=== PATIENT | male | born 1970 | race Caucasian/White ===

== ENCOUNTER 2018-12-23 19:25 | Emergency (ER) | payer MEDICAID, OTHER ==
[2018-12-23 19:54] VITALS: BMI 30.4
[2018-12-23 19:55] VITALS: TEMP 98.6
[2018-12-23] MEDS ORDERED: Sodium Chloride 0.9% 500 ML IV STA (20:12)
--- NOTE | 2018-12-23 20:16 | ED PDOC ---
Arrival/HPI - General Chief Complaint: Back Pain Time Seen by Provider: 12/23/18 19:26 Historian: Patient - History of Present Illness Narrative History of Present Illness (Text): 12/23/18 20:13 Rosy Overton is a 48 year old male, whose past medical history includes diabetes and herniated disc, who presents to the Emergency department complaining of intermittent right flank pain for the past 2 days. Patient states right flank pa in is sharp and does not radiate. Patient reports he took a Motrin yesterday but denies any significant relief. Patient notes he has a history of chronic back pain, but states current pain is more severe in quality. Patient denies any history of kidney stones, nausea, vomiting, hematuria, urinary frequency, or any other complaints. Time/Duration: < week (2 days) Symptom Onset: Gradual Symptom Course: Unchanged Quality: Other (Sharp) Activities at Onset: Light Context: Home Past Medical History - Provider Review Nursing Documentation Reviewed: Yes - Infectious Disease Hx of Infectious Diseases: None - Cardiac Hx Cardiac Disorders: No - Pulmonary Hx Respiratory Disorders: No - Neurological Hx Neurological Disorder: Yes Other/Comment: Pinched nerve on back - HEENT Hx HEENT Disorder: No - Renal Hx Renal Disorder: No - Endocrine/Metabolic Hx Endocrine Disorders: Yes Hx Diabetes Mellitus Type 2: Yes - Hematological/Oncological Hx Blood Disorders: No - Integumentary Hx Dermatological Disorder: No - Musculoskeletal/Rheumatological Hx Musculoskeletal Disorders: No - Gastrointestinal Hx Gastrointestinal Disorders: No - Genitourinary/Gynecological Hx Genitourinary Disorders: No - Psychiatric Hx Psychophysiologic Disorder: No Hx Substance Use: No - Anesthesia Hx Anesthesia: No Family/Social History - Physician Review Nursing Documentation Reviewed: Yes Family/Social History: Unknown Family HX Smoking Status: Never Smoked Hx Alcohol Use: Yes Hx Substance Use: No Allergies/Home Meds Allergies/Adverse Reactions: Allergies No Known Allergies Allergy (Verified 12/23/18 19:54) Review of Systems - Physician Review All systems were reviewed & negative as marked: Yes - Review of Systems Constitutional: absent: Fevers Gastrointestinal: absent: Nausea, Vomiting Genitourinary Male: absent: Dysuria, Frequency, Hematuria Musculoskeletal: Back Pain (+right flank pain) Physical Exam - Physical Exam Narrative Physical Exam (Text): Gen: VS reviewed, alert, well developed, well nourished, nontoxic, mild distress. ENT: normal pharynx. Eye: EOMI, PERRL. Neck: no JVD, supple, no adenopathy. CV: regular rate, regular rhythm, no rubs, no murmur, no gallops, S1, S2, pulses equal and strong. Pulm: no distress, clear to auscultation, no wheeze, no rhonchi, breath sounds equal, no rales. Abd: soft, nontender, no guarding, no rebound, no rigidity, normal bowel sounds. Back: +Right CVA tenderness, no midline tenderness Ext: no edema. Skin: good color, no rash, no cyanosis. Psych: responds appropriately to questions, normal affect. Neuro: oriented x 3, CN2-12 intact grossly, motor intact, sensation intact. Vital Signs Reviewed: Yes Vital Signs Temp Pulse Resp BP Pulse Ox 12/23/18 19:55 98.6 F 108 H 18 136/87 96 Temperature: Afebrile Blood Pressure: Normal Pulse: Regular Respiratory Rate: Normal Appearance: Positive for: Well-Appearing, Non-Toxic, Comfortable Pain Distress: None Mental Status: Positive for: Alert and Oriented X 3 Medical Decision Making ED Course and Treatment: 12/23/18 20:14 Impression: 48 year old male complaining of sharp right flank pain for the past 2 days. Plan: -- CT Abdomen and Pelvis -- CBC, BMP -- Urinalysis -- IV fluids -- Toradol -- Tylenol -- Reassess and disposition Progress Notes: 12/23/18 21:[address] Farooq, pending Urinalysis, CT, reassessment, and disposition. - Lab Interpretations I have reviewed the lab results: Yes - RAD Interpretation Radiology Orders: 12/23/18 20:12 ABDOMEN & PELVIS [ABD & PELVIS W/O PO OR IV CONT] [CT] Stat - Medication Orders Current Medication Orders: Acetaminophen (Tylenol 325mg Tab) 975 mg PO STAT STA Stop: 12/23/18 20:13 Sodium Chloride (Sodium Chloride 0.9%) 500 mls @ 999 mls/hr IV .Q31M STA Stop: 12/23/18 20:42 Ketorolac Tromethamine (Toradol) 30 mg IVP STAT STA Stop: 12/23/18 20:13 - Scribe Statement The provider has reviewed the documentation as recorded by the Scribe Clara Newellzon Provider Dunia Attestation: All medical record entries made by the Dunia were at my direction and personally dictated by me. I have reviewed the chart and agree that the record accurately reflects my personal performance of the history, physical exam, medical decision making, and the department course for this patient. I have also personally directed, reviewed, and agree with the discharge instructions and disposition. Disposition/Present on Arrival - Present on Arrival Any Indicators Present on Arrival: No History of DVT/PE: No History of Uncontrolled Diabetes: No Urinary Catheter: No History of Decub. Ulcer: No History Surgical Site Infection Following: None - Disposition Have Diagnosis and Disposition been Completed?: Yes Diagnosis: Back pain Disposition: HOME/ ROUTINE Disposition Time: 19:26 Discharge Instructions (ExitCare): Low Back Pain (DC), Upper Back Pain (DC) Additional Instructions: ROSY OVERTON, thank you for letting us take care of you today. Your provider was Papito Farooq MD and you were treated for LOWER BACK PAIN. The emergency medical care you received today was directed at your acute symptoms. If you were prescribed any medication, please fill it and take as directed. It may take several days for your symptoms to resolve. Return to the Emergency Department if your symptoms worsen, do not improve, or if you have any other problems. Please contact your doctor or call one of the physicians/clinics you have been referred to that are listed on the Patient Visit Information form that is included in your discharge packet. Bring any paperwork you were given at discharge with you along with any medications you are taking to your follow up visit. Our treatment cannot replace ongoing medical care by a primary care provider outside of the emergency department. Thank you for allowing the [facility] team to be part of your care today. If you had an X-Ray or CT scan: A Radiologist will review the ED reading if any change in treatment is needed we will contact you. Prescriptions: Cyclobenzaprine [Cyclobenzaprine HCl] 10 mg PO TID #21 tab Forms: [employer] (Algerian), WORK NOTE
[2018-12-23 20:40] LABS: BASO # 0.02 K/mm3 (0.0-2.0); BASO % 0.2 % (0.0-3.0); EOS # 0.1 (0.0-0.7); EOS % 1.1 % (1.5-5.0); HEMOGLOBIN 15.1 g/dL (14.0-18.0); LYMPH % 30.5 % (22.0-35.0); MEAN CELL VOLUME 85.9 fl (80.0-105.0); MEAN CORPUSCULAR HEMOGLOBIN 30.8 pg (25.0-35.0); MEAN CORPUSCULAR HGB CONC 35.8 g/dl (31.0-37.0); MEAN PLATELET VOLUME 10.2 fl (7.0-11.0); MONO # 0.8 (0.1-0.6); MONO % 7.7 % (1.0-6.0); RBC 4.91 10^6/uL (3.5-6.1); RED CELL DISTRIBUTION WIDTH 12.7 % (11.5-14.5); WHITE BLOOD COUNT 9.8 10^3/uL (4.5-11.0)
[2018-12-23 20:46] LABS: BLOOD UREA NITROGEN 20 mg/dL (7-21); CALCIUM 9.8 mg/dL (8.4-10.5); GFR NON-AFRICAN AMERICAN > 60
[2018-12-23 22:40] LABS: URINE BILIRUBIN NEGATIVE (NEGATIVE); URINE BLOOD NEGATIVE (NEGATIVE); URINE GLUCOSE (UA) 500 mg/dL (NEGATIVE); URINE LEUKOCYTE ESTERASE NEGATIVE Leu/uL (NEGATIVE); URINE PROTEIN TRACE mg/dL (<30 mg/dL); URINE UROBILINOGEN 0.2 E.U./dL (<1 E.U./dL)
[2018-12-23 22:42] LABS: URINE APPEARANCE CLEAR (CLEAR)
--- NOTE | 2018-12-23 23:00 | ED PDOC ---
Physical Exam Vital Signs Temp Pulse Resp BP Pulse Ox 12/23/18 19:55 98.6 F 108 H 18 136/87 96 Medical Decision Making ED Course and Treatment: 12/23/18 21:40 Case endorsed to me by Dr. Burris, pending Urinalysis, CT Abdomen and Pelvis, reassessment, and disposition. 12/23/18 22:40 CT Abdomen and Pelvis: LUNG BASES: The lung bases appear clear. No pleural effusions are seen. LIVER: there is hepatomegaly. The liver measured an estimated 20.4 cm in the midclavicular line. GALLBLADDER AND BILE DUCTS: The gallbladder is partially contracted. No radioopaque gallstones are seen. No biliary ductal dilatation is evident. PANCREAS: Unremarkable. SPLEEN: Unremarkable. ADRENAL GLANDS: Unremarkable. KIDNEYS, URETERS, AND BLADDER: The kidneys appear within normal limits. There is no hydronephrosis or hydroureter. No urinary calculi are seen. The urinary bladder is normal in size and configuration. STOMACH AND BOWEL: Circumferential mucosal wall thickening is seen within the lower esophagus at the esophagogastric junction thought compatible with reflux esophagitis. Retained food debris is seen within the stomach. No evidence of bowel obstruction. No evidence suggesting enteritis or colitis. APPENDIX: No evidence of acute appendicitis on CT examination. PERITONEUM: No free fluid. No free air. LYMPH NODES: No lymphadenopathy is evident. VASCULATURE: No evidence of abdominal aortic aneurysm. BONES: No aggressive appearing osseous lesion. No acute osseous pathology evident. IMPRESSION: 1. Evidence of reflux esophagitis. 2. Retained food debris is noted within the stomach. This may indicate recent ingestion of a meal. 3. Hepatomegaly. Measurement is given above. Electronically signed on Dec 23, 2018 10:37:46 PM EST by: Maurizio Asencio M.D., MARIA LUISA Certified By [employer] Fellowship Trained MRI and CT Specialist - Lab Interpretations Lab Results: Urine Color yellow (YELLOW) 12/23/18 22:10 Urine Appearance Clear (CLEAR) 12/23/18 22:10 Urine pH 6.0 (4.7-8.0) 12/23/18 22:10 Ur Specific [place] >= 1.030 (1.005-1.035) 12/23/18 22:10 Urine Protein Trace mg/dL (<30 mg/dL) H 12/23/18 22:10 Urine Glucose (UA) 500 mg/dL (NEGATIVE) H 12/23/18 22:10 Urine Ketones 15 mg/dL (NEGATIVE) H 12/23/18 22:10 Urine Blood Negative (NEGATIVE) 12/23/18 22:10 Urine Nitrate Negative (NEGATIVE) 12/23/18 22:10 Urine Bilirubin Negative (NEGATIVE) 12/23/18 22:10 Urine Urobilinogen 0.2 E.U./dL (<1 E.U./dL) 12/23/18 22:10 Ur Leukocyte Esterase Negative Marvel/uL (NEGATIVE) 12/23/18 22:10 Urine RBC TEST NOT PERFORMED 12/23/18 22:10 Urine WBC 2 - 5 /hpf (0-6) 12/23/18 22:10 Ur Epithelial Cells 6 - 8 /hpf (0-5) H 12/23/18 22:10 - RAD Interpretation Radiology Orders: 12/23/18 20:12 ABDOMEN & PELVIS [ABD & PELVIS W/O PO OR IV CONT] [CT] Stat - Medication Orders Current Medication Orders: Discontinued Medications Acetaminophen (Tylenol 325mg Tab) 975 mg PO STAT STA Stop: 12/23/18 20:13 Last Admin: 12/23/18 20:26 Dose: 975 mg Sodium Chloride (Sodium Chloride 0.9%) 500 mls @ 999 mls/hr IV .Q31M STA Stop: 12/23/18 20:42 Last Admin: 12/23/18 20:26 Dose: 999 mls/hr eMAR Start Stop Document 12/23/18 20:26 CNR (Rec: 12/23/18 20:26 CNR [id number]) Intravenous Solution Start Date 12/23/18 Start Time 20:26 End Date 12/23/18 End time 21:26 Total Infusion Time 60 Ketorolac Tromethamine (Toradol) 30 mg IVP STAT STA Stop: 12/23/18 20:13 Last Admin: 12/23/18 20:27 Dose: 30 mg MAR Pain Assessment Document 12/23/18 20:27 CNR (Rec: 12/23/18 20:27 CNR [id number]) Pain Reassessment Is this a pain reassessment? No IVP Administration Document 12/23/18 20:27 CNR (Rec: 12/23/18 20:27 CNR [id number]) Charges for Administration # of IVP Administrations 1 - Scribe Statement The provider has reviewed the documentation as recorded by the Doyleibe Clara Pool Provider Scribe Attestation: All medical record entries made by the Scribe were at my direction and personally dictated by me. I have reviewed the chart and agree that the record accurately reflects my personal performance of the history, physical exam, medical decision making, and the department course for this patient. I have also personally directed, reviewed, and agree with the discharge instructions and disposition. Disposition/Present on Arrival - Present on Arrival Any Indicators Present on Arrival: No History of DVT/PE: No History of Uncontrolled Diabetes: No Urinary Catheter: No History of Decub. Ulcer: No History Surgical Site Infection Following: None - Disposition Additional Instructions: ROSY SERRA, thank you for letting us take care of you today. Your provider was Papito Farooq MD and you were treated for LOWER BACK PAIN. The emergency medical care you received today was directed at your acute symptoms. If you were prescribed any medication, please fill it and take as directed. It may take several days for your symptoms to resolve. Return to the Emergency Department if your symptoms worsen, do not improve, or if you have any other problems. Please contact your doctor or call one of the physicians/clinics you have been referred to that are listed on the Patient Visit Information form that is included in your discharge packet. Bring any paperwork you were given at discharge with you along with any medications you are taking to your follow up visit. Our treatment cannot replace ongoing medical care by a primary care provider outside of the emergency department. Thank you for allowing the [email or web address] team to be part of your care today. If you had an X-Ray or CT scan: A Radiologist will review the ED reading if any change in treatment is needed we will contact you. Forms: [employer] (Greenlandic)
[2018-12-23 23:58] VITALS: BP 116/72; PULSE 89; RESP 14; O2SAT 100
--- NOTE | 2018-12-24 11:27 | CT ---
Date of service: 12/23/2018 PROCEDURE: CT Abdomen and Pelvis without intravenous contrast HISTORY: Right flank pain, stone COMPARISON: None. TECHNIQUE: CT scan of the abdomen and pelvis was performed without administration of intravenous contrast. Oral contrast was not administered. Coronal and sagittal reformatted images were obtained. Radiation dose: Total exam DLP = 819.07 mGy-cm. This CT exam was performed using one or more of the following dose reduction techniques: Automated exposure control, adjustment of the mA and/or kV according to patient size, and/or use of iterative reconstruction technique. FINDINGS: LOWER THORAX: There is subsegmental atelectasis in the lingula. The lung bases are clear. There is a tiny calcified granuloma in the left lung base. LIVER: Normal in size. No gross lesion or ductal dilatation. GALLBLADDER AND BILE DUCTS: The gallbladder is contracted. PANCREAS: Mild fatty atrophy. No gross lesion or ductal dilatation. SPLEEN: Normal in size. ADRENALS: No discrete nodule. KIDNEYS AND URETERS: Both kidneys are normal in size without hydronephrosis or nephrolithiasis. VASCULATURE: Normal in caliber. No aortic aneurysm. No aortic atherosclerotic calcification or mural plaque present. BOWEL: The small bowel loops are normal in caliber. There is moderate amount of stool scattered throughout the colon. No bowel dilatation or obstruction APPENDIX: Normal appendix. PERITONEUM: No free fluid. No free air. LYMPH NODES: No enlarged lymph nodes. BLADDER: Grossly normal in appearance. REPRODUCTIVE: Prostate gland is normal in size. BONES: No acute fracture. There is diffuse bone demineralization and multilevel degenerative changes in the spine. OTHER FINDINGS: There is moderate circumferential mural thickening in the distal esophagus. There are bilateral small fat containing inguinal hernias. IMPRESSION: No acute abdominal or pelvic abnormality. No nephrolithiasis or obstructive uropathy. Moderate circumferential mural thickening in the distal esophagus which may represent nonspecific esophagitis. Underlying neoplasm cannot be entirely excluded. Correlation with EGD may be performed if clinically indicated.
--- NOTE | 2018-12-24 16:50 | ED PDOC ---
ED Additional Note - Physician Additional Note Physician Additional Note: CT of the abdomen and pelvis was placed into the PA review folder. i advised patient of CT results of Moderate circumferential mural thickening in the distal esophagus which may represent nonspecific esophagitis. Underlying neoplasm cannot be entirely excluded. Correlation with EGD may be performed if clinically indicated. I have advised the patient to follow up with the GI specialist for endoscopy to r/o neoplasm vs inflammation. I stressed the importance of F/u. i gave the patient the contact information to dr. Papito Camilo the GI specialist property utilization manager. Pt states he will follow up with the specialist and understands the need for follow up. CT abd/pelvis: FINDINGS: LOWER THORAX: There is subsegmental atelectasis in the lingula. The lung bases are clear. There is a tiny calcified granuloma in the left lung base. LIVER: Normal in size. No gross lesion or ductal dilatation. GALLBLADDER AND BILE DUCTS: The gallbladder is contracted. PANCREAS: Mild fatty atrophy. No gross lesion or ductal dilatation. SPLEEN: Normal in size. ADRENALS: No discrete nodule. KIDNEYS AND URETERS: Both kidneys are normal in size without hydronephrosis or nephrolithiasis. VASCULATURE: Normal in caliber. No aortic aneurysm. No aortic atherosclerotic calcification or mural plaque present. BOWEL: The small bowel loops are normal in caliber. There is moderate amount of stool scattered throughout the colon. No bowel dilatation or obstruction APPENDIX: Normal appendix. PERITONEUM: No free fluid. No free air. LYMPH NODES: No enlarged lymph nodes. BLADDER: Grossly normal in appearance. REPRODUCTIVE: Prostate gland is normal in size. BONES: No acute fracture. There is diffuse bone demineralization and multilevel degenerative changes in the spine. OTHER FINDINGS: There is moderate circumferential mural thickening in the distal esophagus. There are bilateral small fat containing inguinal hernias. IMPRESSION: No acute abdominal or pelvic abnormality. No nephrolithiasis or obstructive uropathy. Moderate circumferential mural thickening in the distal esophagus which may represent nonspecific esophagitis. Underlying neoplasm cannot be entirely excluded. Correlation with EGD may be performed if clinically indicated.
== END 2018-12-23 23:57 | disposition home or self-care (01) ==
LOC: ED 19:25
DX: M54.9 Dorsalgia, unspecified (principal); E11.9 Type 2 diabetes mellitus without complications
CPT/HCPCS: 74176; 80048; 81001; 85025; 96361; 96374; 99283; J1885; J7040